=== PATIENT | male | born 1995 | race Caucasian/White ===

== ENCOUNTER 2018-05-14 09:00 | Outpatient (RCR) | payer BC, SELFPAY ==
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
--- NOTE | 2018-05-14 09:53 | HP.PTDCSUM ---
HP - PT D/C Summary It has been my pleasure to treat KVNG GARCIA under orders from Kike Coyne, for the diagnosis of RIGHT LUMBAR RADICULOPATHY,LUMBAR DEGENERATIVE DISC DISEASE for a total of 7 visit(s). Discharge Date: 05/14/18 Please see the following information for a summary of their discharge status. - Subjective Subjective: Doing well ... I dont need MRI at this point - Pain Right Back Pain Intensity (Out of 10): 0 Right Lower Extremity Pain Intensity (Out of 10): 0 - Overall Improvement % Improvement: 80 - Objective Objective/Function: POSTURE: WNL. GAIT: NORMAL ALBERTO. MMT: 4/5 GROSSLY. LUMBAR ROM: flexion ,extension min loss ,side glides min. -SLR - Goals Goal 1:: Independant with HEP Goal Progress: Goal Met Goal 2:: Independant with posture/body mechanics Goal Progress: Goal Met Goal 3:: Patient to decrease pain in lumbar pain and radicular symptoms by 60% or greater to improve function. Goal Progress: Goal Met Goal 4:: Patient to improve lumbar ROM for function of recovery. Goal Progress: Goal Met Goal 5:: Patient to improve BACK MIKKI score by 5points to improve function. Goal Progress: Goal Met - Plan Plan: D/C - D/C Information Discharge Comments: HEP If there are questions or concerns regarding this patient's physical therapy, please feel free to call me at [phone]. Thank you for the referral of this patient. Sincerely, Vishnu Bello, PT, Cert MDT, OCS
== END 2018-05-14 19:00 | disposition home or self-care (01) ==
LOC: PT 09:00
DX: M54.16 Radiculopathy, lumbar region (principal)
CPT/HCPCS: 97014; 97035; 97110; 97161; G0283

== ENCOUNTER → 2018-09-25 06:31 | Outpatient (CLI) | payer BC, SELFPAY ==
--- NOTE | 2018-09-25 06:38 | MRI_ITS ---
STUDY: MRI LUMBAR SPINE WITHOUT CONTRAST REASON FOR EXAM: Male, 23 years old. Low back pain and bilateral leg pain. Injury 10 months ago. DDD. TECHNIQUE: Standardized fat and water weighted pulse sequences were obtained in the sagittal and axial planes. COMPARISON: None FINDINGS: T12-L1: (Sagittal only). Minimal anterior wedging of L1 superior endplates may be developmental or from remote injury. Normal T12 inferior endplate. Tiny posterior bulging disc. Normal central canal and bilateral intervertebral neural foramina. Normal lumbar lordosis. There is no substantial scoliosis. Normal conus medullaris that terminates at the mid T12 vertebral body level. L1-2: Normal endplates. Normal disc height, hydration and morphology. Normal bilateral facet joints. Normal central canal and bilateral lateral recesses. Normal bilateral intervertebral neural foramina. L2-3: Normal endplates. Normal disc height, hydration and morphology. Normal bilateral facet joints. Normal central canal and bilateral lateral recesses. Normal bilateral intervertebral neural foramina. L3-4: Normal endplates. Normal disc height, hydration and morphology. Normal bilateral facet joints. Normal central canal and bilateral lateral recesses. Normal bilateral intervertebral neural foramina. L4-5: Normal endplates. Mild disc space height narrowing. Small posterior annular fissure underneath the a posterior annulus. Mild central canal stenosis with an AP canal diameter of 9.5 mm. Normal bilateral lateral recesses. Normal facet joints. Normal bilateral intervertebral neural foramina. L5-S1: Normal endplates. Mild disc space height narrowing. Normal disc hydration and morphology. Mild central canal stenosis with an AP canal diameter of 9 mm. Normal bilateral lateral recesses. Normal facet joints. Normal bilateral intervertebral neural foramina. Normal visualized sacral ala. Normal visualized paraspinous soft tissue structures. MRI/Spine Lumbar (Routine) IMPRESSION: 1. Small posterior annular fissure with mild disc space height narrowing at L4-L5 disc level and mild central canal stenosis. The AP canal diameter is 9.5 mm. 2. Mild central canal stenosis at L5-S1 disc level with mild disc space height narrowing. The AP canal diameter is 9 mm. 3. No MRI evidence of lumbar extruded disc fragment or nerve root displacement. 4. Small T12-L1 posterior bulging disc. 5. Minimal anterior wedging of L1 superior endplate may be developmental or from remote injury. Electronically Signed: Ernesto Marshall MD at 15:50 EDT , Service support ,
== END ==
PROVIDERS: Referring Provider Nurse Practitioner; Visit Provider Nurse Practitioner
DX: M51.36 Other intervertebral disc degeneration, lumbar region (principal)
CPT/HCPCS: 72148

== ENCOUNTER → 2018-11-17 12:47 | Outpatient (CLI) | payer BC, SELFPAY ==
[2014-03-13 18:51] VITALS: BMI 23.0
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
== END ==
PROVIDERS: Family Provider Family Medicine; PCP Family Medicine; Referring Provider Family Medicine; Visit Provider Family Medicine
DX: M25.531 Pain in right wrist (principal)
CPT/HCPCS: 73110

== ENCOUNTER 2020-07-09 16:12 | Emergency (ER) | payer OTHER, BC, SELFPAY ==
[2020-07-09 16:13] VITALS: BP 136/84; PULSE 81; RESP 22; TEMP 36.8; O2SAT 100; BMI 24.4
--- NOTE | 2020-07-09 16:26 | EKG12_ITS ---
Test Reason : TRAUMA Blood Pressure : / mmHG Vent. Rate : 070 BPM Atrial Rate : 070 BPM P-R Int : 178 ms QRS Dur : 100 ms QT Int : 386 ms P-R-T Axes : 069 094 043 degrees QTc Int : 416 ms Normal sinus rhythm with sinus arrhythmia Rightward axis Borderline ECG Confirmed by MARINA MENESES, EPIFANIO ([id number]), makeup editor NAVJOT IBARRA ([id number]) on 07/12/2020 7:53:22 AM Referred By: MUKESH Confirmed By:EPIFANIO GRAY MD
--- NOTE | 2020-07-09 16:27 | RAD_ITS ---
We are attempting to reach an attending provider to discuss findings. An addendum with communication details will be sent when the communication is complete. STUDY: X-RAY CHEST REASON FOR EXAM: Male, 25 years old. Trauma TECHNIQUE: AP portable COMPARISON: None. FINDINGS: There is subcutaneous emphysema in the left lateral chest wall and neck. There is relatively lucent appearance to the left upper lobe and peripherally in left lower lobe with curvilinear lucency suggesting a pneumothorax possibly loculated. Normal size heart. Normal mediastinum and vincenzo. Normal visualized pulmonary arteries. Normal visualized aortic arch and descending thoracic aorta. Normal visualized thoracic spine. Normal visualized ribs, clavicles, and shoulders. There is no demonstrated abnormality of the visualized soft tissue structures of the upper abdomen. RAD/Chest 1 View (Portable) IMPRESSION: Subcutaneous emphysema in the left lateral chest wall with findings suspicious for loculated pneumothorax. CT recommended for further evaluation Electronically Signed: Chano Morrison MD at 17:05 EDT , Service support ,
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
--- NOTE | 2020-07-09 16:33 | RAD_ITS ---
STUDY: X-RAY - LEFT HAND REASON FOR EXAM: Male, 25 years old. Injury/Pain TECHNIQUE: 3 view(s) of the hand. COMPARISON: None. FINDINGS: Normal radiocarpal articulation. Normal distal radioulnar joint. Normal visualized carpal bones. Normal carpal articulations Normal carpometacarpal articulation of the thumb. Normal second through fifth carpometacarpal joints. Normal metacarpi. Normal metacarpophalangeal joint of the thumb. Normal interphalangeal joint of the thumb. Normal proximal and distal phalanges of the thumb. Normal metacarpophalangeal joints of the second through fifth fingers. Normal proximal and distal interphalangeal joints of the second through fifth fingers. Normal phalanges of the second through fifth fingers. The soft tissue structures are unremarkable. RAD/Hand Min 3 Views IMPRESSION: Normal x-ray examination of the hand. Electronically Signed: Chano Morrison MD at 16:53 EDT , Service support ,
--- NOTE | 2020-07-09 16:33 | ED.RN ---
NO OLD EKGS
[2020-07-09 16:42] LABS: Absolute Lymphocyte Count 2.74 X10^3/uL (0.83-4.51); Absolute Neutrophil Count 15.3 X10^3/uL (2.0-7.7); Basophil# 0.07 X10^3/uL; Basophil% 0.4 % (0-1); Eosinophil# 0.02 X10^3/uL; Eosinophils% 0.1 % (0-5); Hematocrit 47.3 % (40-54); Hemoglobin 15.3 g/dL (13.0-16.5); Lymphocyte # 2.74 X10^3/ul (4.0); Mean Corp Hgb Conc 32.3 g/dL (32-36); Mean Corpuscular Hgb 30.7 pg (27.0-32.0); Mean Corpuscular Volume 94.8 fL (80-94); Mean Platelet Vol. 10.1 fl (6.2-12.0); Monocyte# 1.29 X10^3/uL; Monocyte% 6.6 % (0-10); NRBC Flagged by Analyzer 0 % (0-5); Neutrophil # 15.27 X10^3/uL (2.7-7.7); Neutrophil % 77.8 % (47-70); Platelet Count 287 K/mm3 (150-450); RBC Distribution Width CV 13.3 % (11.6-14.6); Red Blood Count 4.99 M/mm3 (4.6-6.2); White Blood Count 19.6 K/mm3 (4.4-11.0)
[2020-07-09] MEDS: Diphth,Pertuss(Acell),Tet Vac 0.5 ML Vial IM (16:45)
[2020-07-09] MEDS: 0.9% Normal Saline 1,000 ML 999 ML IV (16:46)
[2020-07-09] MEDS: Morphine 4 MG/ML Syringe IV (16:50)
[2020-07-09] MEDS: Ondansetron 4 MG/2 ML Vial IV (16:51)
--- NOTE | 2020-07-09 16:53 | CT_ITS ---
STUDY: CT CERVICAL SPINE WITHOUT CONTRAST REASON FOR EXAM: Male, 25 years old. Trauma RADIATION DOSAGE (If Supplied By Facility): CTDIvol = ( 19.65 ) mGy, DLP = ( 394.43 ) mGycm TECHNIQUE: High resolution transaxial imaging was performed without contrast material. Sagittal and coronal images were reconstructed. Individualized dose optimization techniques were used for this CT. COMPARISON: None FINDINGS: Normal craniovertebral junction. Normal anterior atlantoaxial articulation. Normal odontoid process. Normal cervical lordosis. Normal vertebral bodies and posterior osseous elements. C2-3: Normal endplates. Normal disc height and morphology. Normal central canal and intervertebral neuroforamina. C3-4: Normal endplates. Normal disc height and morphology. Normal central canal and intervertebral neuroforamina. C4-5: Minor endplate spurring. Normal disc height and morphology. Normal central canal and intervertebral neuroforamina. C5-6: Normal endplates. Normal disc height and morphology. Normal central canal and intervertebral neuroforamina. C6-7: Normal endplates. Normal disc height and morphology. Normal central canal and intervertebral neuroforamina. C7-T1: Normal endplates. Normal disc height and morphology. Normal central canal and intervertebral neuroforamina. Incidental finding of subcutaneous emphysema within the soft tissues.. CT/Spine Cervical without Contras IMPRESSION: Subcutaneous emphysema within the soft tissues of the neck. No evidence for acute fracture or subluxation. Incidental finding of bilateral pneumothoraces within the thoracic cavity larger on the left Electronically Signed: Chano Morrison MD at 17:48 EDT , Service support ,
--- NOTE | 2020-07-09 16:53 | CT_ITS ---
We are attempting to reach an attending provider to discuss findings. An addendum with communication details will be sent when the communication is complete. STUDY: CT CHEST WITHOUT CONTRAST REASON FOR EXAM: Male, 25 years old. Trauma RADIATION DOSAGE (If Supplied By Facility): CTDIvol = ( 18.04 ) mGy, DLP = ( 671.57 ) mGycm TECHNIQUE: Transaxial imaging was performed without the administration of intravenous contrast material. Individualized dose optimization techniques were used for this CT. COMPARISON: None. FINDINGS: There are focal areas of groundglass opacity within the right lung more pronounced in the upper lobe. There is a tiny apical pneumothorax on the right.. There is a moderate-sized loculated pneumothorax approximating 30-40% volume on the left with mild atelectasis in left lower lobe. There is also mild anterior pneumomediastinum. Normal heart and pericardium. . Normal hilar regions. Normal unenhanced pulmonary arteries. Normal aorta arch and descending thoracic aorta. Dorsal spine demonstrates mild degenerative change.. There is subcutaneous emphysema seen within the left anterior posterior and lateral chest wall as well as the supraclavicular space. There is no demonstrated abnormality of the visualized upper abdomen. CT/Chest without Contrast IMPRESSION: Moderate-sized loculated left pneumothorax with mild left lower lobe atelectasis. Tiny right apical pneumothorax with patchy areas of groundglass opacity in the right upper and lower lobes which may be consistent with pulmonary contusions. No definite rib fracture identified Electronically Signed: Chano Morrison MD at 17:57 EDT , Service support ,
--- NOTE | 2020-07-09 16:53 | CT_ITS ---
STUDY: CT BRAIN WITHOUT CONTRAST REASON FOR EXAM: Male, 25 years old. Trauma RADIATION DOSAGE (If Supplied By Facility): CTDIvol = ( 44.99 ) mGy, DLP = ( 880.47 ) mGycm TECHNIQUE: Transaxial CT imaging of the brain was performed without administration of intravenous contrast material. Individualized dose optimization techniques were used for this CT. COMPARISON: No relevant priors. FINDINGS: Normal soft tissue structures. Normal calvarium. Normal size ventricles and extra-axial spaces for the patient''s age. Normal white matter tracts of the cerebral hemispheres. Normal basal ganglia and thalami. Normal brainstem. Normal cerebellum. LORNA cisterna magna is observed consistent with normal variant There is no intracranial hemorrhage. There are no findings of an acute ischemic infarction. Normal visualized paranasal sinuses. CT/Brain/Head without Contrast IMPRESSION: Normal unenhanced CT scan of the brain. Incidental finding of mild subcutaneous edema within the paravertebral soft tissues Electronically Signed: Chano Morrison MD at 17:45 EDT , Service support ,
[2020-07-09 16:54] LABS: BUN 16 mg/dL (7-18); Creatinine, Serum 1.05 mg/dL (0.70-1.30); EST Glomerular Filtration Rate 91 mL/min (>60); Estimated Creatinine Clearance 113.55 ml/min; Glucose 119 mg/dL (74-106)
[2020-07-09 16:55] LABS: Anion Gap 8 (5-15); BUN/Creat Ratio 15.2 RATIO (10-20); Calcium,Total 9.7 mg/dL (8.5-10.1); Chloride 103 mmol/L (98-107); Est Glom Filt Rate - Afr Amer 110 mL/min (>60); Potassium 3.3 mmol/L (3.5-5.1); Sodium Level 137 mmol/L (136-145)
[2020-07-09] MEDS: HYDROmorphone 0.5 MG/0.5 ML SYRINGE IV ×2 (17:07→18:57)
[2020-07-09] MEDS: Midazolam 5 MG/ML Syringe IV (17:41)
[2020-07-09 17:43] VITALS: BP 130/74; PULSE 94; RESP 25; O2SAT 95
[2020-07-09 17:49] VITALS: BP 129/82; PULSE 89; RESP 13; O2SAT 100
[2020-07-09 17:54] VITALS: BP 120/73; PULSE 83; RESP 10; O2SAT 100
[2020-07-09 18:00] VITALS: BP 121/74; PULSE 89; RESP 11; O2SAT 100
--- NOTE | 2020-07-09 18:07 | RAD_ITS ---
STUDY: X-RAY CHEST REASON FOR EXAM: Male, 25 years old. Tube placement TECHNIQUE: AP portable COMPARISON: 07/09/2020 FINDINGS: Left chest tube has been placed with interval reduction in size of the previously noted pneumothorax with only minimal residual apical pneumothorax. This also tiny apical pneumothorax on the right.. Mild right lower lobe atelectasis. RAD/Chest 1 View (Portable) IMPRESSION: Improvement in previously noted left pneumothorax with minimal apical residual status post chest tube placement and tiny right apical pneumothorax Electronically Signed: Chano Morrison MD at 18:19 EDT , Service support ,
[2020-07-09 19:15] VITALS: BP 121/81; PULSE 80; RESP 17; TEMP 36.4; O2SAT 95
== END 2020-07-09 19:17 | disposition short-term general hospital (02) ==
PROVIDERS: Emergency Provider Emergency Medicine; PCP Family Medicine
DX: S27.0XXA Traumatic pneumothorax, initial encounter (principal); T79.7XXA Traumatic subcutaneous emphysema, initial encounter; S27.321A Contusion of lung, unilateral, initial encounter; S09.90XA Unspecified injury of head, initial encounter; M54.2 Cervicalgia; V19.3XXA Pedal cyclist (driver) (passenger) injured in unspecified nontraffic accident, initial encounter; Y93.55 Activity, bike riding; Y92.828 Other wilderness area as the place of occurrence of the external cause; Y99.9 Unspecified external cause status
CPT/HCPCS: 32551; 70450; 71045; 71250; 72125; 73130; 80048; 85025; 87426; 90715; 93005; 96372; 96374; 96375; 96376; 99285; J7030; A4216; J2405